=== PATIENT | female | born 1975 | race Caucasian/White ===

== ENCOUNTER 2017-09-28 06:39 | Emergency (ER) | payer OTHER ==
[2017-09-28] MEDS ORDERED: Zofran 4 MG/2 ML VIAL IV ONE (07:10)
[2017-09-28] MEDS ORDERED: Sodium Chloride 0.9% 1000 ML 1,000 ML IV STA (07:10)
[2017-09-28] MEDS ORDERED: MORPHINE SULFATE 4 MG INJ IV ONE (07:10)
[2017-09-28] MEDS ORDERED: MORPHINE SULFATE 4 MG INJ ONE (07:14)
[2017-09-28] MEDS ORDERED: Sodium Chloride 0.9% 1000 ML 1,000 ML ONE (07:14)
[2017-09-28] MEDS ORDERED: Zofran 4 MG/2 ML VIAL ONE (07:14)
--- NOTE | 2017-09-28 07:16 | ERPHSYRPT ---
- History of Present Illness Time Seen by Provider: 09/28/17 07:12 Historian: patient Exam Limitations: no limitations Patient Subjective Stated Complaint: pt states she has been having abd pain since approx 0100. states she has been diagnosed with gallbladder pain a few years ago and thinks thats what is causing her pain now Triage Nursing Assessment: pt alert and oriented, asnwers questions approp. pt ambulatory with steady gait noted. skin pink warm and dry. respirations nonlabored with lungs cta. abd soft with bowel sounds present. Physician History: 42 y/o female comes to the ER with complaints of epigastric abdominal pain, nausea and vomiting that started this morning at 1 am. Pt describes the pain as sharp, constant, 8/10 and not relieved by motrin. Pt admits to multiple episodes of nausea and vomiting. Pt says she had a few episodes of diarrhea. Pt also admits to chills, but no vomiting, fever, constipation or urinary symptoms. Pt has had issues with gallstones in the past. Timing/Duration: today Activities at Onset: none Quality: sharpness Abdominal Pain Onset Location: RUQ, epigastric Pain Radiation: no radiation Severity of Pain-Max: severe Severity of Pain-Current: severe Modifying Factors: Improves With: nothing Associated Symptoms: diarrhea, loss of appetite, nausea, vomiting Previous symptoms: same symptoms as today Allergies/Adverse Reactions: No Known Drug Allergies Allergy (Verified 09/28/17 06:55) Hx Tetanus, Diphtheria Vaccination/Date Given: No (unknown) Hx Influenza Vaccination/Date Given: No Hx Pneumococcal Vaccination/Date Given: No Immunizations Up to Date: No - Review of Systems Constitutional: No Fever, No Chills Eyes: No Symptoms Ears, Nose, & Throat: No Symptoms Respiratory: No Cough, No Dyspnea Cardiac: No Chest Pain, No Edema, No Syncope Abdominal/Gastrointestinal: Abdominal Pain, Nausea, Vomiting, Diarrhea, Appetite Changes, No Hematemesis, No Hematochezia, No Melena Genitourinary Symptoms: No Dysuria Musculoskeletal: No Back Pain, No Neck Pain Skin: No Rash Neurological: No Dizziness, No Focal Weakness, No Sensory Changes Psychological: No Symptoms Endocrine: No Symptoms All Other Systems: Reviewed and Negative - Past Medical History Pertinent Past Medical History: Yes GI Medical History: Gallbladder Disease - Past Surgical History Past Surgical History: Yes Female Surgical History: Hysterectomy, Tubal Ligation - Social History Smoking Status: Former smoker Exposure to second hand smoke: No Drug Use: none Patient Lives Alone: No Significant Family History: no pertinent family hx - Female History Hx Last Menstrual Period: hyster Hx Now: No - Nursing Vital Signs Nursing Vital Signs: Initial Vital Signs Temperature 97.4 F 09/28/17 06:46 Pulse Rate 74 09/28/17 06:46 Respiratory Rate 18 09/28/17 06:46 Blood Pressure 130/79 09/28/17 06:46 O2 Sat by Pulse Oximetry 96 09/28/17 06:46 Pain Scale Pain Intensity 0 - Physical Exam General Appearance: no apparent distress, alert Eye Exam: PERRL/EOMI, eyes nml inspection Ears, Nose, Throat Exam: normal ENT inspection, pharynx normal, moist mucous membranes Neck Exam: normal inspection, non-tender, supple, full range of motion Respiratory Exam: normal breath sounds, lungs clear, No respiratory distress Cardiovascular Exam: regular rate/rhythm, normal heart sounds Gastrointestinal/Abdomen Exam: soft, normal bowel sounds, tenderness, No distention, No mass, No guarding Back Exam: normal inspection, normal range of motion, No CVA tenderness, No vertebral tenderness Extremity Exam: normal inspection, normal range of motion, pelvis stable Neurologic Exam: alert, oriented x 3, cooperative, normal mood/affect, nml cerebellar function, sensation nml, No motor deficits Skin Exam: normal color, warm, dry SpO2: 96 Oxygen Delivery: Room Air - Course Nursing assessment & vital signs reviewed: Yes Ordered Tests: Active Orders 24 hr Category Date Time Status IV Insertion STAT Care 09/28/17 07:10 Active ABDOMEN AND PELVIS W CONTRAST [CT] Stat Exams 09/28/17 07:10 Taken AMYLASE Stat Lab 09/28/17 07:10 Completed CBC W DIFF Stat Lab 09/28/17 07:10 Completed CMP Stat Lab 09/28/17 07:10 Completed LIPASE Stat Lab 09/28/17 07:10 Completed Medication Summary Discontinued Medications Generic Name Dose Route Start Last Admin Trade Name Freq PRN Reason Stop Dose Admin Sodium Chloride 1,000 mls @ 999 mls/hr 09/28/17 07:10 09/28/17 07:19 Sodium Chloride 0.9% 1000 Ml IV 09/28/17 08:10 999 mls/hr .Q1H1M STA Administration Sodium Chloride Confirm 09/28/17 07:14 Sodium Chloride 0.9% 1000 Ml Administered 09/28/17 07:15 Dose 1,000 mls @ ud .ROUTE .STK-MED ONE Morphine Sulfate 4 mg 09/28/17 07:10 09/28/17 07:20 Morphine Sulfate 4 Mg Inj IV 09/28/17 07:11 4 mg STAT ONE Administration Morphine Sulfate Confirm 09/28/17 07:14 Morphine Sulfate 4 Mg Inj Administered 09/28/17 07:15 Dose 4 mg .ROUTE .STK-MED ONE Ondansetron HCl 4 mg 09/28/17 07:10 09/28/17 07:19 Zofran 4 Mg/2 Ml Vial IV 09/28/17 07:11 4 mg STAT ONE Administration Ondansetron HCl Confirm 09/28/17 07:14 Zofran 4 Mg/2 Ml Vial Administered 09/28/17 07:15 Dose 4 mg .ROUTE .STK-MED ONE Lab/Rad Data: Laboratory Result Diagrams 09/28/17 07:10 09/28/17 07:10 Laboratory Results 09/28/17 09/28/17 Range/Units 07:10 07:10 WBC 7.1 (4.0-10.5) K/mm3 RBC 4.69 (4.1-5.4) M/mm3 Hgb 14.5 (12.0-16.0) gm/dl Hct 41.9 (35-47) % MCV 89.3 (78-100) fl MCH 30.9 (26-32) pg MCHC 34.6 (32-36) g/dl RDW 12.2 (11.5-14.0) % Plt Count 233 (150-450) K/mm3 MPV 9.5 (6-9.5) fl Gran % 67.0 H (36.0-66.0) % Lymphocytes % 26.7 (24.0-44.0) % Monocytes % 5.5 (0.0-12.0) % Eosinophils % 0.7 (0.00-5.0) % Basophils % 0.1 (0.0-0.4) % Basophils # 0.01 (0-0.4) Sodium 140 (136-145) mEq/L Potassium 3.6 (3.5-5.1) mEq/L Chloride 104 (98-107) mEq/L Carbon Dioxide 24.2 (21-32) mEq/L Anion Gap 15.4 H (5-15) MEQ/L BUN 18 (9-20) mg/dL Creatinine 0.62 (0.55-1.30) mg/dl Estimated GFR > 60 ML/MIN Glucose 122 H (70-110) MG/DL Calcium 8.9 (8.5-10.1) mg/dL Total Bilirubin 0.60 (0.2-1.0) mg/dL AST 20 (15-37) U/L ALT 44 (12-78) U/L Alkaline Phosphatase 79 (46-116) U/L Serum Total Protein 8.1 (6.4-8.2) gm/dL Albumin 3.8 (3.4-5.0) g/dL Amylase 35 (25-115) U/L Lipase 175 (73-393) U/L - Progress Progress: improved Progress Note: 09/28/17 08:[address] scan abd/pelvis shows a large gallstone and gallbladder distention. No signs of cholecystitis. The labs are unremarkable. Pt feels better after receiving morphine, zofran and NS fluids. Pt will be d/c home on percocet, zofran and a surgery referral. - Departure Time of Disposition: 08:29 Departure Disposition: Home Clinical Impression: Gallstone Qualifiers: Cholecystitis presence: without cholecystitis Biliary obstruction: without biliary obstruction Qualified Code(s): K80.20 - Calculus of gallbladder without cholecystitis without obstruction Condition: Stable Critical Care Time: No Referrals: YARI MCGARRY [Primary Care Provider] - MAKENNA PERES [ACTIVE STAFF] - Instructions: Gallstones Additional Instructions: Follow up with Dr Peres for any additional recommendations for gallstones. Prescriptions: Ondansetron [Zofran Odt] 4 mg PO QID PRN #15 tab.rapdis PRN Reason: Nausea/Vomiting Oxycodone HCl/Acetaminophen [Percocet 5-325 mg Tablet] 1 each PO QID PRN #15 tablet PRN Reason: Pain
[2017-09-28 07:20] LABS: BASOPHIL % 0.1 % (0.0-0.4); Eosinophil % 0.7 % (0.00-5.0); Lymphocytes % 26.7 % (24.0-44.0); Mean Cell Volume 89.3 fl (78-100); Mean Corpuscular Hemoglobin 30.9 pg (26-32); Mean Platelet Volume 9.5 fl (6-9.5); Monocytes % 5.5 % (0.0-12.0); Platelet Count 233 K/mm3 (150-450); Red Blood Count 4.69 M/mm3 (4.1-5.4); Red Cell Distribution Width 12.2 % (11.5-14.0); White Blood Count 7.1 K/mm3 (4.0-10.5)
[2017-09-28 07:39] LABS: ALBUMIN 3.8 g/dL (3.4-5.0); ALKALINE PHOSPHATASE 79 U/L (46-116); ANION GAP 15.4 MEQ/L (5-15); BLOOD UREA NITROGEN 18 mg/dL (9-20); CHLORIDE 104 mEq/L (98-107); Carbon Dioxide 24.2 mEq/L (21-32); Glucose 122 MG/DL (70-110); LIPASE 175 U/L (73-393); Potassium 3.6 mEq/L (3.5-5.1); SGOT/AST 20 U/L (15-37); SGPT/ALT 44 U/L (12-78); SODIUM 140 mEq/L (136-145); Total Protein 8.1 gm/dL (6.4-8.2)
[2017-09-28 09:39] VITALS: BP 108/65; PULSE 81; O2SAT 98
--- NOTE | 2017-09-28 12:08 | XRAY ---
Indication: Right upper quadrant pain and nausea. Multiple contiguous axial images obtained through the abdomen and pelvis using 80 cc Isovue 370 contrast only. Comparison: None Lung bases there is mild bibasilar dependent atelectasis. Heart is not enlarged. Noncontrasted stomach and bowel loops appear nonobstructed. Normal appendix. No free fluid/air. Gallbladder is distended with a 2.8 cm gallstone. No abnormal biliary distention. Spleen is enlarged measuring 14 cm in greatest axial dimension. Previous hysterectomy. Remaining liver, pancreas, spleen, adrenal glands, kidneys, ureters, bladder, and aorta appear unremarkable. No pathologic retroperitoneal lymphadenopathy. Osseous structures intact. Impression: 1. Distended gallbladder with gallstone. 2. Incidental splenomegaly. Comment: Preliminary interpretation was made by [facility]. No critical discrepancy. CTDI 23.68
== END 2017-09-28 09:00 | disposition home or self-care (01) ==
LOC: ED 06:39
DX: K80.20 Calculus of gallbladder without cholecystitis without obstruction (principal); R11.2 Nausea with vomiting, unspecified
CPT/HCPCS: 36000; 36415; 74177; 80053; 82150; 83690; 85025; 96360; 96374; 96375; 99284; J2270; J2405

== ENCOUNTER 2017-11-11 20:29 | Emergency (ER) | payer OTHER ==
[2017-11-11] MEDS ORDERED: DUONEB 0.5-3 MG/3 ml Neb IH ONE ×2 (21:01→21:22)
[2017-11-11] MEDS ORDERED: Sodium Chloride 0.9% 1000 ML 1,000 ML IV STA (21:01)
[2017-11-11] MEDS ORDERED: Sodium Chloride 0.9% 1000 ML 1,000 ML ONE (21:11)
--- NOTE | 2017-11-11 21:14 | ERPHSYRPT ---
- History of Present Illness Time Seen by Provider: 11/11/17 20:53 Source: patient Exam Limitations: no limitations Patient Subjective Stated Complaint: pt states she has had a cough for approx 3 days. state she has not been able to rest d/t cough Triage Nursing Assessment: pt alert and oriented, answers questions approp. pt ambulatory with steady gait noted. respirations nonlabored. frequent nonproductive cough noted. Physician History: 42 y/o female comes to the ER with complaints of non-productive cough since Friday. Pt has been using mucinex with no relief. Pt also admits to occasional shortness of breath and wheezing. No fever, chills, weakness but the patient does admit to having diffuse muscle aches and runny nose. No sick contacts. Timing/Duration: day(s) Cough Quality/Degree: mild Possible Cause: no prior episodes Modifying Factors: Improves With: exertion, lying down International travel in last 2 weeks: Yes Allergies/Adverse Reactions: No Known Drug Allergies Allergy (Verified 11/11/17 20:53) Hx Tetanus, Diphtheria Vaccination/Date Given: No (unknown) Hx Influenza Vaccination/Date Given: No Hx Pneumococcal Vaccination/Date Given: No Immunizations Up to Date: No - Review of Systems Constitutional: Weakness, No Fever, No Chills Eyes: No Symptoms Ears, Nose, & Throat: No Symptoms, Nose Discharge Respiratory: Cough, Dyspnea on Exertion (KLINE), No Dyspnea Cardiac: No Chest Pain, No Edema, No Syncope Abdominal/Gastrointestinal: No Abdominal Pain, No Nausea, No Vomiting, No Diarrhea Genitourinary Symptoms: No Dysuria Musculoskeletal: No Back Pain, No Neck Pain Skin: No Rash Neurological: No Dizziness, No Focal Weakness, No Sensory Changes Psychological: No Symptoms Endocrine: No Symptoms All Other Systems: Reviewed and Negative - Past Medical History Pertinent Past Medical History: Yes GI Medical History: Gallbladder Disease - Past Surgical History Past Surgical History: Yes Female Surgical History: Hysterectomy, Tubal Ligation - Social History Smoking Status: Former smoker Exposure to second hand smoke: No Drug Use: none Patient Lives Alone: No Significant Family History: no pertinent family hx - Female History Hx Last Menstrual Period: hyster Hx Now: No - Nursing Vital Signs Nursing Vital Signs: Initial Vital Signs Temperature 98.4 F 11/11/17 20:45 Pulse Rate 110 H 11/11/17 20:45 Respiratory Rate 20 11/11/17 20:45 Blood Pressure 129/82 11/11/17 20:45 O2 Sat by Pulse Oximetry 99 11/11/17 20:45 Pain Scale Pain Intensity 0 - Physical Exam General Appearance: no apparent distress, alert Eye Exam: PERRL/EOMI, eyes nml inspection Ears, Nose, Throat Exam: normal ENT inspection, TMs normal, pharynx normal, moist mucous membranes Neck Exam: normal inspection, non-tender, supple, full range of motion Respiratory Exam: normal breath sounds, lungs clear, No respiratory distress Cardiovascular Exam: regular rate/rhythm, normal heart sounds Gastrointestinal/Abdomen Exam: soft, No tenderness Back Exam: normal inspection, No CVA tenderness, No vertebral tenderness Extremity Exam: normal inspection, normal range of motion Neurologic Exam: alert, oriented x 3, cooperative, normal mood/affect, sensation nml, No motor deficits Skin Exam: normal color, warm, dry, No rash Lymphatic Exam: No adenopathy SpO2: 99 Oxygen Delivery: Room Air - Course Nursing assessment & vital signs reviewed: Yes Ordered Tests: Active Orders 24 hr Category Date Time Status IV Insertion STAT Care 11/11/17 21:01 Active CHEST 2 VIEWS (PA AND LAT) Stat Exams 11/11/17 21:02 Taken BLOOD CULTURE Stat Lab 11/11/17 21:18 Received CBC W DIFF Stat Lab 11/11/17 21:18 Completed CMP Stat Lab 11/11/17 21:18 Completed Respiratory Nebulizer STAT RT 11/11/17 21:02 Completed Medication Summary Discontinued Medications Generic Name Dose Route Start Last Admin Trade Name Freq PRN Reason Stop Dose Admin Albuterol/Ipratropium 3 ml 11/11/17 21:01 11/11/17 21:39 Duoneb 0.5-3 Mg/3 Ml Neb IH 11/11/17 21:02 3 ml STAT ONE Administration Albuterol/Ipratropium Confirm 11/11/17 21:22 Duoneb 0.5-3 Mg/3 Ml Neb Administered 11/11/17 21:23 Dose 3 ml IH .STK-MED ONE Azithromycin 500 mg 11/11/17 22:45 Zithromax 250 Mg Tablet PO 11/11/17 22:46 STAT ONE Sodium Chloride 1,000 mls @ 999 mls/hr 11/11/17 21:01 11/11/17 21:15 Sodium Chloride 0.9% 1000 Ml IV 11/11/17 22:01 999 mls/hr .Q1H1M STA Administration Sodium Chloride Confirm 11/11/17 21:11 Sodium Chloride 0.9% 1000 Ml Administered 11/11/17 21:12 Dose 1,000 mls @ ud .ROUTE .STK-MED ONE Lab/Rad Data: Laboratory Result Diagrams 11/11/17 21:18 11/11/17 21:18 Laboratory Results 11/11/17 11/11/17 11/11/17 Range/Units 21:20 21:18 21:18 WBC 4.8 (4.0-10.5) K/mm3 RBC 4.43 (4.1-5.4) M/mm3 Hgb 13.6 (12.0-16.0) gm/dl Hct 40.4 (35-47) % MCV 91.2 (78-100) fl MCH 30.7 (26-32) pg MCHC 33.7 (32-36) g/dl RDW 12.4 (11.5-14.0) % Plt Count 168 (150-450) K/mm3 MPV 9.5 (6-9.5) fl Gran % 61.0 (36.0-66.0) % Lymphocytes % 27.6 (24.0-44.0) % Monocytes % 8.7 (0.0-12.0) % Eosinophils % 2.5 (0.00-5.0) % Basophils % 0.2 (0.0-0.4) % Basophils # 0.01 (0-0.4) Sodium 141 (136-145) mEq/L Potassium 3.6 (3.5-5.1) mEq/L Chloride 106 (98-107) mEq/L Carbon Dioxide 28.5 (21-32) mEq/L Anion Gap 9.6 (5-15) MEQ/L BUN 15 (9-20) mg/dL Creatinine 0.91 (0.55-1.30) mg/dl Estimated GFR > 60 ML/MIN Glucose 91 (70-110) MG/DL Calcium 8.7 (8.5-10.1) mg/dL Total Bilirubin 0.50 (0.2-1.0) mg/dL AST 37 (15-37) U/L ALT 71 (12-78) U/L Alkaline Phosphatase 80 (46-116) U/L Serum Total Protein 7.1 (6.4-8.2) gm/dL Albumin 3.4 (3.4-5.0) g/dL Influenza Type A Ag NEGATIVE (NEGATIVE) Influenza Type B Ag NEGATIVE (NEGATIVE) RSV (PCR) NEGATIVE (Negative) - Progress Progress: improved Progress Note: 11/11/17 22:47 The CXR, rapid strep and influenza are all negative. The rest of the labs are within normal limits. The patient feels better after receiving NS fluids and will be d/c home on azithromycin and guafenesin with codeine for bronchitis. - Departure Time of Disposition: 22:48 Departure Disposition: Home Clinical Impression: Bronchitis Condition: Stable Critical Care Time: No Referrals: YARI MCGARRY [Primary Care Provider] - Instructions: Bronchitis Additional Instructions: Follow up with your primary care doctor if there is no improvement in your symptoms. Finish the antibiotics until completion. Prescriptions: Azithromycin 250 mg [Zithromax 250 MG TABLET] 250 mg PO DAILY #4 tablet Codeine Phosphate/Guaifenesin [Guaifen-Codeine 100-10 mg/5 ml] 5 ml PO Q4-6HPRN PRN #120 liquid PRN Reason: Cough
[2017-11-11 21:29] LABS: BASOPHIL % 0.2 % (0.0-0.4); Eosinophil % 2.5 % (0.00-5.0); Lymphocytes % 27.6 % (24.0-44.0); Mean Cell Volume 91.2 fl (78-100); Mean Corpuscular Hemoglobin 30.7 pg (26-32); Mean Platelet Volume 9.5 fl (6-9.5); Monocytes % 8.7 % (0.0-12.0); Platelet Count 168 K/mm3 (150-450); Red Blood Count 4.43 M/mm3 (4.1-5.4); Red Cell Distribution Width 12.4 % (11.5-14.0); White Blood Count 4.8 K/mm3 (4.0-10.5)
[2017-11-11 21:52] LABS: ALBUMIN 3.4 g/dL (3.4-5.0); ALKALINE PHOSPHATASE 80 U/L (46-116); ANION GAP 9.6 MEQ/L (5-15); BLOOD UREA NITROGEN 15 mg/dL (9-20); CHLORIDE 106 mEq/L (98-107); Carbon Dioxide 28.5 mEq/L (21-32); Glucose 91 MG/DL (70-110); Potassium 3.6 mEq/L (3.5-5.1); SGOT/AST 37 U/L (15-37); SGPT/ALT 71 U/L (12-78); SODIUM 141 mEq/L (136-145); Total Protein 7.1 gm/dL (6.4-8.2)
[2017-11-11] MEDS ORDERED: Zithromax 250 MG TABLET PO ONE (22:45)
[2017-11-11] MEDS ORDERED: Robitussin AC Syrup Unit Dose Cup PO ONE (22:46)
[2017-11-11] MEDS ORDERED: Robitussin AC Syrup Unit Dose Cup ONE (22:50)
[2017-11-11] MEDS ORDERED: Zithromax 250 MG TABLET ONE (22:50)
[2017-11-11 22:51] VITALS: O2SAT 99
[2017-11-11 22:57] VITALS: BP 113/57; PULSE 104
--- NOTE | 2017-11-12 09:15 | XRAY ---
Indication: Cough. Comparison: None PA/lateral chest hyperinflated and clear. Heart is not enlarged. Vascularity normal. Bony thorax intact. Impression: Nonacute hyperinflated chest.
== END 2017-11-11 23:00 | disposition home or self-care (01) ==
LOC: ED 20:29
DX: J40 Bronchitis, not specified as acute or chronic (principal); R50.9 Fever, unspecified; R05 Cough
CPT/HCPCS: 36000; 36415; 71020; 80053; 85025; 87040; 87631; 94640; 96360; 99284; A9270-GY

== ENCOUNTER 2018-06-14 16:33 | Emergency (ER) | payer OTHER ==
--- NOTE | 2018-06-14 17:01 | ERPHSYRPT ---
- History of Present Illness Time Seen by Provider: 06/14/18 16:56 Source: patient Exam Limitations: no limitations Patient Subjective Stated Complaint: pt here for pain right foot and ankle on sat. after twisting it. pt has swelling to inner aspect of ankle and swelling to inner aspect of ankle Triage Nursing Assessment: pt walked in alert, resp easy skin w/d/ Physician History: Patient is a 43-year-old female complaining that she slipped in the mud yesterday evening and twisting her right ankle, causing pain to her right ankle and foot. She put ice on it. She took Tylenol. The ankle is swollen and tender. Occurred: yesterday Reason for Fall: slipped, fell from standing pos Injuries/Pain Location: lower extremity (right ankle and foot) Loss of Consciousness: no loss of consciousness Quality: sharpness Severity of Pain-Max: moderate Severity of Pain-Current: moderate Modifying Factors: Improves With: pain medication Associated Symptoms (Fall): trouble walking Allergies/Adverse Reactions: No Known Drug Allergies Allergy (Verified 06/14/18 16:51) Home Medications: No Reportable Medications [No Reported Medications] 06/14/18 [History] Hx Tetanus, Diphtheria Vaccination/Date Given: No (unknown) Hx Influenza Vaccination/Date Given: No Hx Pneumococcal Vaccination/Date Given: No Immunizations Up to Date: Yes - Review of Systems Constitutional: No Fever, No Chills Eyes: No Symptoms Ears, Nose, & Throat: No Symptoms Respiratory: No Cough, No Dyspnea Cardiac: No Chest Pain, No Edema, No Syncope Abdominal/Gastrointestinal: No Abdominal Pain, No Nausea, No Vomiting, No Diarrhea Genitourinary Symptoms: No Dysuria Musculoskeletal: Fall, Injury, Joint Swelling Skin: No Rash Neurological: No Dizziness, No Focal Weakness, No Sensory Changes Psychological: No Symptoms Endocrine: No Symptoms Hematologic/Lymphatic: No Symptoms Immunological/Allergic: No Symptoms All Other Systems: Reviewed and Negative - Past Medical History Pertinent Past Medical History: Yes GI Medical History: Gallbladder Disease - Past Surgical History Past Surgical History: Yes Gastrointestinal: Cholecystectomy Female Surgical History: Hysterectomy, Tubal Ligation - Social History Smoking Status: Never smoker Exposure to second hand smoke: No Drug Use: none Patient Lives Alone: No Significant Family History: no pertinent family hx - Female History Hx Last Menstrual Period: hyster Hx Now: No - Nursing Vital Signs Nursing Vital Signs: Initial Vital Signs Temperature 97.6 F 06/14/18 16:46 Pulse Rate 48 L 06/14/18 16:46 Respiratory Rate 16 06/14/18 16:46 Blood Pressure 130/87 06/14/18 16:46 O2 Sat by Pulse Oximetry 98 06/14/18 16:46 Pain Scale Pain Intensity 6 - [place] Coma Score Best Eye Response ([place]): (4) open spontaneously Best Verbal Response ([place]): (5) oriented Best Motor Response ([place]): (6) obeys commands [place] Total: 15 - Physical Exam General Appearance: no apparent distress, alert Head Injury: no evidence of injury Eye Exam: PERRL/EOMI ENT Exam: airway nml Neck Exam: normal inspection, No tenderness Respiratory/Chest Exam: normal breath sounds, No chest tenderness, No respiratory distress Cardiovascular Exam: normal heart sounds, regular rate/rhythm Gastrointestinal Exam: soft, No tenderness, No distention, No guarding, No ecchymosis Rectal Exam: not done Back Exam: normal inspection Extremity Exam: pain with movement, swelling (right lateral malleolus), tenderness Neurologic Exam: alert, oriented x 3, cooperative, sensation nml, No motor deficits Skin Exam: normal color, warm, dry SpO2 Interpretation: normal SpO2: 98 Oxygen Delivery: Room Air - Radiology Exams Right Ankle X-ray Interpretation: Interpreted by me, Negative, No Fracture Right Foot X-ray Interpretation: Interpreted by me, Negative, No Fracture Ordered Tests: Active Orders 24 hr Category Date Time Status Cold Application STAT Care 06/14/18 16:53 Active ANKLE (3 VIEWS) Stat Exams 06/14/18 17:19 Taken FOOT (MINIMUM 3 VIEWS) Stat Exams 06/14/18 17:02 Taken Medication Summary Discontinued Medications Generic Name Dose Route Start Last Admin Trade Name Riverq PRN Reason Stop Dose Admin Ketorolac Tromethamine 60 mg 06/14/18 17:02 06/14/18 17:19 Toradol 30 Mg Injection IM 06/14/18 17:03 60 mg STAT ONE Administration Ketorolac Tromethamine Confirm 06/14/18 17:16 Toradol 30 Mg Injection Administered 06/14/18 17:17 Dose 60 mg .ROUTE .STK-MED ONE - Progress Progress: improved Counseled pt/family regarding: rad results - Departure Time of Disposition: 17:46 Departure Disposition: Home Clinical Impression: Moderate right ankle sprain Condition: Stable Critical Care Time: No Referrals: YARI MCGARRY [Primary Care Provider] - Additional Instructions: You have a moderate sprain of your right ankle. The x-rays did not show any broken bones. You were given Toradol 60 mg by IM in the ER. Continue to apply ice to the area as needed. Take Tylenol 1000 mg and ibuprofen 800 mg every 8 hours as needed. Follow-up with your primary medical doctor as needed.
[2018-06-14] MEDS ORDERED: TORAdol 30 mg Injection ONE (17:16)
[2018-06-14] MEDS: TORAdol 30 mg Injection IM ONE (17:19)
[2018-06-14 17:26] VITALS: BP 129/95; PULSE 78
[2018-06-14 17:47] VITALS: O2SAT 98
--- NOTE | 2018-06-14 20:24 | XRAY ---
Indication: Pain following twisting injury. Comparison: None 3 views of the right ankle demonstrates mild lateral soft tissue swelling, small heel spurs, and tiny anterior lower leg soft tissue calcified granuloma. No other bony, articular, or soft tissue abnormalities.
--- NOTE | 2018-06-14 20:24 | XRAY ---
Indication: Pain following twisting injury. Comparison: None 3 nonweightbearing views of the right foot demonstrate small heel spurs. No other bony, articular, or soft tissue abnormalities.
== END 2018-06-14 17:53 | disposition home or self-care (01) ==
LOC: ED 16:33
DX: S93.401A Sprain of unspecified ligament of right ankle, initial encounter (principal); X50.0XXA Overexertion from strenuous movement or load, initial encounter
CPT/HCPCS: 73610; 73630; 96372; 99284; J1885